=== PATIENT | male | born 1995 | race Two or more races ===

== ENCOUNTER 2025-01-04 13:47 | Emergency (ER) | payer MEDICAID ==
[~2025-01-04] VITALS: Ht 170.2 cm; Wt 79.4 kg
[2025-01-04] MEDS ORDERED: ONDANSETRON HCL/PF 4 MG/2 ML VIAL ONE (14:12)
[2025-01-04] MEDS ORDERED: FAMOTIDINE/PF INJ 20 MG/2 ML VIAL IV ONE (14:13)
[2025-01-04] MEDS: IV NS 0.9% 1,000 ML BAG IV ONE (14:25)
[2025-01-04] MEDS: ONDANSETRON HCL/PF 4 MG/2 ML VIAL IVP ONE (14:26)
[2025-01-04] MEDS: FAMOTIDINE/PF INJ 20 MG/2 ML VIAL IV ONE (14:26)
[2025-01-04 14:42] LABS: BASOPHILS % (AUTO) 0.4 % (0.0-2.0); EOSINOPHILS # (AUTO) 0.1 K/uL (0.0-0.7); EOSINOPHILS % (AUTO) 1.1 % (0.0-6.0); HEMATOCRIT 43 % (39-51); HEMOGLOBIN 14.9 g/dL (13.5-17.5); LYMPHOCYTES # (AUTO) 1.2 K/uL (0.8-4.8); LYMPHOCYTES % (AUTO) 19.6 % (20.0-44.0); MEAN CORPUSCULAR HEMOGLOBIN 31 PG (26.0-33.0); MEAN CORPUSCULAR HGB CONC 35 g/dl (31.0-36.0); MEAN CORPUSCULAR VOLUME 89 fL (80-96); MONOCYTES # (AUTO) 0.5 K/uL (0.1-1.30); MONOCYTES % (AUTO) 8.1 % (2.0-12.0); NEUTROPHILS # (AUTO) 4.4 K/uL (1.8-8.9); NEUTROPHILS % (AUTO) 70.8 % (43.0-81.0); PLATELET COUNT (AUTO) 170 K/uL (150-450); RED BLOOD CELL COUNT(AUTO) 4.82 MIL/uL (4.5-6.0); RED CELL DISTRIBUTION WIDTH 13.6 % (11.5-15.0); WHITE BLOOD COUNT (AUTO) 6.2 K/uL (4.3-11.0)
[2025-01-04 14:50] LABS: CALCIUM, SERUM 9.3 mg/dL (8.5-10.1); CREATININE 0.9 mg/dL (0.6-1.3); POTASSIUM 3.9 mmol/L (3.5-5.1)
[2025-01-04 14:57] LABS: ALBUMIN 4.2 g/dL (3.4-5.0); BILIRUBIN,DIRECT 0.2 mg/dL (0.0-0.2); BILIRUBIN,TOTAL 0.7 mg/dL (0.2-1.0); TOTAL PROTEIN, SERUM 7.5 g/dL (6.4-8.2)
[2025-01-04] MEDS ORDERED: ONDA4TAB5 PO (15:28)
[2025-01-04 15:56] VITALS: BP 121/76; TEMP 98.5; O2SAT 95
== END 2025-01-04 15:57 | disposition home or self-care (01) ==
LOC: ER 13:47
DX: R11.10 Vomiting, unspecified (principal); R10.13 Epigastric pain; F17.200 Nicotine dependence, unspecified, uncomplicated; Z87.19 Personal history of other diseases of the digestive system; Z60.2 Problems related to living alone; Z59.01 Sheltered homelessness
CPT/HCPCS: 99284; 96374; 96361; 96375; 85025; 80048; 83690; 80076; 36415; J1308; J2405; J7030; A4223